=== PATIENT | male | born 1975 | race African-American/Black ===

== ENCOUNTER 2021-11-09 08:50 | Emergency (ER) | payer OTHER ==
[~2021-11-09] VITALS: Ht 185.4 cm; Wt 98.7 kg
[2021-11-09 09:03] VITALS: BP 144/91
[2021-11-09] MEDS ORDERED: METH750T22 PO (10:34)
[2021-11-09] MEDS ORDERED: IBUP800T27 PO (10:34)
[2021-11-09] MEDS ORDERED: KETOROLAC TROMETH 60MG/2ML VIAL IM ONE (11:00)
== END 2021-11-09 11:16 | disposition home or self-care (01) ==
LOC: ER 08:50
DX: M75.32 Calcific tendinitis of left shoulder (principal); E11.9 Type 2 diabetes mellitus without complications; Z79.1 Long term (current) use of non-steroidal anti-inflammatories (NSAID); Z79.899 Other long term (current) drug therapy
CPT/HCPCS: 73030; 96372; 99283; J1885